=== PATIENT | female | born 1975 ===

== ENCOUNTER 2017-10-01 12:07 | Inpatient (IN) | payer BC, SELFPAY ==
[2017-10-01 12:56] LABS: #Basophils 0.1 thou/uL (0.0-0.2); #Lymphocytes 2.2 thou/uL (1.20-3.40); #Monocytes 1.1 thou/uL (0.11-0.59); #Neutrophils 7.7 thou/uL (1.40-6.50); %Basophils 1.1 % (0.0-1.0); %Eosinophils 0.4 % (0.0-10.0); %Lymphocytes 19.5 % (21.0-51.0); %Monocytes 10.1 % (0.0-10.0); Hemoglobin 4.9 g/dL (12.0-16.0); Mean Corpuscular HGB CONC 30.6 g/dL (32.0-36.0); Mean Corpuscular Hemoglobin 24.2 pg (27.0-31.0); Mean Corpuscular Volume 79.1 fl (81.0-99.0); Mean Platelet Volume 8.3 fL (7.4-10.4); Platelet Count 297 thou/uL (130-400); RBC Distribution Width 17.9 % (11.5-14.5); Red Blood Cell (RBC) Count 2.03 mill/uL (4.20-5.40); Reflex for Review?? NO; White Blood Cell (WBC) Count 11.1 thou/uL (4.8-10.8)
[2017-10-01 12:57] LABS: BHCG - Serum Negative (NEGATIVE); Pregs Control Background? CLEAR/WHITE (CLR/WHITE); Pregs Control Bar Appear? YES (CONTROL BAR)
[2017-10-01 13:13] LABS: ALT (SGPT) 34 U/L (8-55); AST (SGOT) 80 U/L (5-34); Albumin 3.8 g/dL (3.5-5.0); Alkaline Phosphatase 66 U/L (40-150); Anion Gap 20 mmol/L (10-20); BUN (Urea Nitrogen) 6 mg/dL (7.0-18.7); Bilirubin, Total 1.3 mg/dL (0.2-1.2); CK (CPK) 34 U/L (29-168); Calc. Creatinine Clearance 0 mL/min (70-130); Calcium 8.6 mg/dL (7.8-10.44); Carbon Dioxide 18 mmol/L (22-29); Chloride 100 mmol/L (98-107); Estimated GFR-MDRD Greater than 90; Globulin 3.6 g/dL (2.4-3.5); Glucose 126 mg/dL (70-105); Potassium 3.4 mmol/L (3.5-5.1); Protein, Total 7.4 g/dL (6.0-8.3); Sodium 135 mmol/L (136-145)
[2017-10-01 13:14] LABS: CKMB 0.6 ng/mL (0-6.6); Troponin I Less than 0.010 ng/mL (< 0.028)
[2017-10-01 13:42] LABS: INR-International Normal Ratio 1.2; PTT 25.1 SEC (22.9-36.1); Prothrombin Time 15.8 SEC (12.0-14.7)
[2017-10-01 13:48] LABS: Iron 17 ug/dL (50-170); Iron Binding Capacity, Total 433 mcg/dL (265-497)
--- NOTE | 2017-10-01 14:11 | RAD ---
PORTABLE CHEST: History: Chest pain. FINDINGS: The lungs are well aerated and are clear. Heart and mediastinum appear unremarkable. IMPRESSION: No acute abnormality. POS: [facility]
[2017-10-01] MEDS ORDERED: Ondansetron HCl/PF 4 MG/2 ML Vial IVP PRN (14:36)
[2017-10-01] MEDS ORDERED: Tranexamic Acid 650 MG TAB PO SCH (14:45)
[2017-10-01] MEDS ORDERED: medroxyPROGESTERone Acetate 5 MG TAB PO SCH (14:45)
--- NOTE | 2017-10-01 16:22 | HP ---
DATE OF ADMISSION: 10/01/2017 REASON FOR ADMISSION: Menorrhagia with symptomatic anemia, severe. HISTORY OF PRESENT ILLNESS: Ms. Chun is a 42-year-old 0 with a long history of recurrent heavy menses. The patient is now on her third emergency room presentation for menorrhagia. Previou s 2 have been at the [facility] where she has received respectively 3 and 2 units of blood. The patient saw Dr. Rik Longo and Dr. Rachna Flores at [facility] at the end of 2016 and had an endometrial biopsy, which showed disordered proliferative endometri um. The patient has been unable to follow up secondary to financial considerations. She presents to day with one-month of bleeding, dizziness, lightheadedness, and near syncope. Upon presentation, she is found to have a hemoglobin of 4.9, pulse of 135, and respirations of 18. Moderate vaginal bleedi ng is noted. 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 Denies history of STDs. PAST MEDICAL HISTORY: The patient has had a couple of seizures with incomplete evaluation and workup over the years, but does not have these on a regular basis. PAST SURGICAL HISTORY: Right ORIF. ALLERGIES: None. MEDICATIONS: None. SOCIAL HISTORY: Denies tobacco, alcohol, or IV drug use. FAMILY HISTORY: Noncontributory. REVIEW OF SYSTEMS: Noncontributory. PHYSICAL EXAMINATION: GENERAL: Pale white female, in no acute distress. VITAL SIGNS: Pulse 138, blood pressure 105/72, respirations 18, afebrile. HEENT: Within normal limits. LUNGS: Clear to auscultation bilaterally. HEART: Regular rhythm. BREASTS: No masses bilaterally. ABDOMEN: Soft and nontender without rebound or guarding. PELVIC: Vulva without lesions. Vagina, patient has moderate menses. Rest of pelvic exam is deferre d. EXTREMITIES: Without clubbing, cyanosis, or edema. LABORATORY STUDIES: Hemoglobin of 4.9, white count of 11.1, platelet count of 297. PT and PTT are w ithin normal limits. Basic metabolic panel reveals mild hyponatremia and hypokalemia, normal creatin ine. The patient has a low iron, normal TIBC. AST is slightly elevated at 80, total bilirubin is sl ightly elevated at 1.3. Serum test is negative. IMPRESSION: Severe menorrhagia leading to anemia, now with approximately 7-8 total units of blood tr ansfused. PLAN: We will admit the patient to the hospital and transfuse 2 units and recheck her symptoms, kira l signs, and hematocrit. We will administer p.o. Lysteda and Provera. Discussed with patient option s and we will go ahead and consent the patient for a D and C, hysteroscopy, endometrial ablation with Latanya, and plan on performing this tomorrow, 10/02/2017, with Dr. Vargas and OB Hospitalist. We will administer INFeD 500 mg IV and obtain ultrasound.
[2017-10-01] MEDS ORDERED: Sodium Ferric Gluconate 250 MG in Sodium Chloride 0.9% 100 ML IVPB SCH (18:00)
--- NOTE | 2017-10-01 19:10 | ULT ---
ULTRASOUND PELVIS COMPLETE: HISTORY: Menorrhagia. Anemia. COMPARISON: None. TECHNIQUE: Real-time skaggs-scale, color-flow, and spectral analysis of the pelvis was performed with a transabdom inal and transvaginal approach. FINDINGS: The uterus measures 10.1 x 3.9 x 5.5 cm. Endometrial thickness is 6 mm. Adequate vascular flow to both ovaries. The right ovary measures 3.4 x 2.3 x 2.6 cm, and the left ov joe measures 3.5 x 2.4 x 2.1 cm. Bilateral ovarian cysts are present, the largest on the right, remy uring up to 1.7 cm, and the same thing, measuring up to 1.7 cm, on the left. Numerous nabothian cyst s. IMPRESSION: Bilateral small ovarian cysts. No evidence for fibroids. No free fluid. POS: [facility]
[2017-10-01] MEDS: Tranexamic Acid 650 MG TAB PO SCH (21:10)
[2017-10-01] MEDS: Famotidine 20 MG TAB PO SCH (21:11)
[2017-10-01] MEDS ORDERED: Zolpidem Tartrate 5 MG TAB PO PRN (22:40)
[2017-10-01] MEDS: Sodium Chloride 0.9% 1,000 ML IV SCH (23:25)
[2017-10-02 06:01] LABS: #Basophils 0.1 thou/uL (0.0-0.2); #Eosinphils 0.1 thou/uL (0.0-0.7); #Lymphocytes 1.9 thou/uL (1.20-3.40); #Neutrophils 5.2 thou/uL (1.40-6.50); %Basophils 0.7 % (0.0-1.0); %Eosinophils 0.7 % (0.0-10.0); %Lymphocytes 22.8 % (21.0-51.0); %Monocytes 12.4 % (0.0-10.0); %Neutrophils 63.4 % (42.0-75.0); Hemoglobin 6.3 g/dL (12.0-16.0); Mean Corpuscular HGB CONC 32.6 g/dL (32.0-36.0); Mean Corpuscular Hemoglobin 26.5 pg (27.0-31.0); Mean Corpuscular Volume 81.2 fl (81.0-99.0); Mean Platelet Volume 8.6 fL (7.4-10.4); Platelet Count 143 thou/uL (130-400); RBC Distribution Width 17.1 % (11.5-14.5); Red Blood Cell (RBC) Count 2.38 mill/uL (4.20-5.40); White Blood Cell (WBC) Count 8.2 thou/uL (4.8-10.8)
[2017-10-02] MEDS ORDERED: Misoprostol 100 MCG TAB VAG SCH (07:00)
--- NOTE | 2017-10-02 07:26 | PRG ---
DATE OF SERVICE: 10/02/2017 TIME OF SERVICE: 0710 HISTORY OF PRESENT ILLNESS: Ms. Chun is resting comfortably. She reports that she still have va ginal bleeding; however, has decreased significantly. PHYSICAL EXAMINATION: VITAL SIGNS: Pulse is 116 down from 130s, temperature 99.1, respirations 18, blood pressure 125/79, T-max 99.5, pulse max 140. HEENT: Within normal limits. LUNGS: Clear to auscultation bilaterally. ABDOMEN: Soft and nontender, no rebound or guarding. PELVIC: Vulva is without lesions. Vagina is with mild amount of dark clot and blood. EXTREMITIES: Without clubbing, cyanosis or edema. LABORATORY STUDIES: Hematocrit is improved from 16.1 to 19.3 with 2 units of PRBCs, white count is 8 .2, platelet count is 143. Ultrasound was performed which revealed a normal sized uterus with a thin endometrial lining and a small physiologic cyst on both ovaries. No adnexal pathology noted. IMPRESSION: Dysfunctional uterine bleeding requiring multiple blood transfusions. PLAN: Continued care, Cytotec to the vagina to facilitate cervical dilatation, complete IV iron infu karen, D&C, hysteroscopy, endometrial ablation by Dr. Vargas later today and he will reassess for fly garg for further PRBC transfusion.
[2017-10-02] MEDS: Sodium Chloride 0.9% 1,000 ML IV SCH ×2 (08:07→13:48)
[2017-10-02] MEDS ORDERED: Midazolam HCl 2 mg/2 ml Vial ONE (08:44)
[2017-10-02] MEDS ORDERED: Sodium Ferric Gluconate 250 MG in Sodium Chloride 0.9% 100 ML IVPB SCH (09:00)
[2017-10-02] MEDS ORDERED: Metoclopramide HCl 10 MG/2 ML VIAL ONE (11:39)
[2017-10-02] MEDS ORDERED: Fentanyl 250 MCG/5 ML VIAL ONE (11:39)
[2017-10-02] MEDS ORDERED: Lidocaine 1% (PF) 30 ML VIAL ONE (11:47)
[2017-10-02] MEDS: Famotidine 20 MG TAB PO SCH (12:30)
[2017-10-02 12:57] VITALS: BMI 20.9
[2017-10-02] MEDS: Tranexamic Acid 650 MG TAB PO SCH ×2 (13:49→15:26)
[2017-10-02] MEDS ORDERED: Acetaminophen 500 MG TAB PO PRN (13:52)
--- NOTE | 2017-10-02 14:02 | PRG ---
DATE OF SERVICE: 10/02/2017 HISTORY OF PRESENT ILLNESS: The patient is a 42-year-old female admitted for acute vaginal bleeding and symptomatic anemia and has now been transfused 2 units of packed red blood cells. She was scheduled this morning for an endometrial ablation hysteroscopy, D&C. Upon arrival, introducing myself and discussing with the patient the risks and benefits of the procedure and the intended outcomes, the patient has declined surgery at this time. We did discuss given her history and biopsy findings of disordered proliferative endometrium that the patient even in the setting of an endometrial ablation still runs the risk that the remaining growing endometrium can become hyperplastic and possibly turn to cancer given the over estrogenized environment. I did deputy chief counsel that the ablation would likely fix her heavy bleeding to a much more tolerable bleeding and reduce her chances of future blood transfusion significantly. However, at the same token, it is recommended that the patient continue on hormone therapy to minimize the chance of these hyperplastic changes with the remaining endometrium. We discussed various options including control pills, progestin only hormone therapy, Mirena IUD or other laborer marine terminal long-acting control. In our discussion, I reminded the patient that she has been to the hospital now 3 times requiring transfusions at 3 different occasions and that to her own admission the patient has not complied with medical therapy or follow up. We did discuss that by performing the hysteroscopy, D&C, and endometrial ablation today and the determination to stay on hormone therapy that this would be the most effective overall treatment plan for reducing her risk of future blood transfusions and hospitalizations due to the bleeding. We also discussed in the event that her bleeding continues to be a problem after an ablation, the likely next step would be a hysterectomy. The patient again expressed her decision to hold off on the surgery and attempt medical management once again, or to attempt medical management with the intent of being compliant. I stressed the importance of the patient having follow up with a doctor in the future as most recent as 5-6 weeks from now to make sure she is tolerating her control pill well. I also discussed with the patient that medical management is not a guarantee in resolving her bleeding issues and guaranteeing that she will not get hospitalized and transfused again in the future. The patient again expressed that she desires to delay her surgery. We have transferred her to the floor. Her post-transfusion hemoglobin and hematocrit are 6.3 and 19.3, platelets 143, 000 down from 297,000 as of this morning at 5 o'clock. In the patient's current setting, I will go ahead and transfuse her 2 more units of packed red blood cells, bringing the patient in the hopefully upper 7s hemoglobin. She will also be given a prescription for control. The patient's mother has assured that Ms. Chun will have follow up in 5-6 weeks and has also expressed understanding and the importance of continuing medical treatment and follow up as directed. She has been directed, as the patient has no insurance at this time, has been directed to [employer] as a viable option for a power pay basis. Her previous OBGYN, Dr Flores, may be able to see her there. I have also expressed the option of requesting a power pay cost for visiting any doctor as generally that charge comes with a discount. The patient's mother has expressed the plans on moving back to [place] in November. KIARA
[2017-10-02 18:13] VITALS: BP 138/87
[2017-10-02 21:21] VITALS: TEMP 98.5
--- NOTE | 2017-10-03 06:48 | DIS ---
DATE OF ENCOUNTER: 10/02/2017 DATE OF ADMISSION: 10/01/2017 DATE OF DISCHARGE: 10/02/2017 ADMITTING DIAGNOSES: 1. Symptomatic anemia. 2. Vaginal bleeding. DISCHARGE DIAGNOSES: 1. Symptomatic anemia. 2. Vaginal bleeding. PROCEDURE: Four units of packed red blood cells transfused. HOSPITAL COURSE: The patient is a 42-year-old female with a known history of abnormal uterine bleedi ng, status post 2 previous occasions of symptomatic anemia requiring blood transfusion with the most recent being in April. Upon arrival to the hospital, the patient had a hemoglobin of 4.9, hematoc rit of 16.1, platelets of 297,000. After 2 units, the patient had hemoglobin of 6.3, hematocrit of 1 9.3, platelets of 143,000. On hospital day #2, the patient initially had plans for a hysteroscopy, D and C, and endometrial ablation. By the time, I went to discuss with her the risks and benefits of the procedure and her alternatives. The patient was in the preop area. During our discussion, the p atient decided to delay surgery and to attempt medical management. After our discussion, it was dete rmined the patient really is not continued on medical management for any length of time due to lack o f insurance and understanding of the ease and inexpensive nature of the medications as needed and los t a follow up. After the patient decided to discontinue proceeding with surgery, I did stress the im portance of the patient's compliance with medical management and the importance of appropriate follow up over the next several years. The patient and her mother both expressed understanding and committe d to those plans. Over the course of hospital day #2, the patient received 2 more units of packed re d blood cells, for a total of 4 units of packed red blood cells her bleeding has been nonexistent for nearly a day now as the patient has been placed on Lysteda, progesterone, and IV estrogen during her stay. This evening, the patient's blood pressure is 138/87, heart rate of 100, temperature 98.5, re spiratory rate of 18. The patient is in no acute distress. She is alert and oriented, cooperative, and pleasant to interact with. She has color now in her skin, does not have any dizziness, headache or other symptoms and continues to be free of vaginal bleeding. The patient is being discharged to [facility]. She has plans to follow up with Dr. Flores at [facility] in [place], [place] in 5-6 weeks to follow up with control tolerance. She has been prescribed levonorgestrel and ethinyl estradiol from the [employer] $9 plan and has been given 2 packs. With anticipation to receive a year s upply once tolerance has been determined. 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 The patient is moving to [place] in the next few months. I stressed the importance of the pat ient to continue medical care and medication to combat her unopposed estrogen environment. We discus sed that the patient has 2 main problems one is her irregular heavy bleeding that is clearly making h er symptomatic requiring blood transfusion, in addition is the unopposed estrogen environment that he r endometrium is in and long-term risk for hyperplasia and endometrial cancer. She does have a biops y back in April showing disordered proliferative endometrium. No evidence of hyperplasia or atypi a in that biopsy. The patient is being discharged to home.
--- NOTE | 2017-10-03 09:24 | PRG ---
DATE OF SERVICE: 10/03/2017 PRIMARY FRONT END JAVA DEVELOPER: Dr. Flores. The patient is a 42-year-old female, who was admitted for acute vaginal bleeding and ultimately disch arged after 4 units of packed red blood cells. I spoke with Dr. Flores, her previous FRONT END JAVA DEVELOPER, who rem embered Ms. Chun well and reported that the patient has a history of endometrial hyperplasia with out atypia. Given this information, it is clear that we made the right decision not to move forward with surgery. The patient was not forthcoming with this information. I will attempt to contact her to stress the importance of followup and continued medical management. I have been also notified guicho t the patient cannot see Dr. Flores at [facility] for PHYSICAL DESIGN ENGINEER purposes, as they do not see PHYSICAL DESIGN ENGINEER patient's there per the [facility] policies, whereas she can come to [facility] as a power p ay patient.
== END 2017-10-02 22:18 | disposition home or self-care (01) | DRG 812 ==
LOC: ERS 12:07 → 3SW 14:29
PROVIDERS: ADMIT Obstetrics & Gynecology; ATTEND Obstetrics & Gynecology
PROC: 30233N1 Transfusion of Nonautologous Red Blood Cells into Peripheral Vein, Percutaneous Approach (ICD-10-PCS; principal; 2017-10-01)
DX: D64.9 Anemia, unspecified (principal); N93.9 Abnormal uterine and vaginal bleeding, unspecified; N85.01 Benign endometrial hyperplasia
CPT/HCPCS: 36415; 36430; 71045; 76856; 80053; 82553; 82728; 83540; 83550; 84484; 84703; 85025; 85610; 85730; 86850; 86900; 86901; 93005; 96360; 96361; J0131; J2001; J2250; J2765; J2916; J3010; J7050; P9016